=== PATIENT | male | born 1945 | race Caucasian/White ===

== ENCOUNTER 2017-03-17 16:44 | Observation (INO) | payer MEDICARE ==
[~2017-03-17] VITALS: Ht 172.7 cm; Wt 83.0 kg
[2017-03-17 16:47] VITALS: BP 159/81; PULSE 53; RESP 17; O2SAT 95
--- NOTE | 2017-03-17 16:56 | ED.REPORT ---
HPI-Stroke / CVA Mar 17, 2017 ED Provider: Chris Terrazas Pt is an otherwise healthy 71 year old male who presents to the ED complaining of left sided weakness onset this morning. He c/o associated spinning sensation at 10:00 yesterday and left-sided facial droop. Pt reports worsening symptoms since onset. He denies fever, cough, headache, vomiting, nausea, chest pain, and any other symptoms. Pt was referred to the ED by his PCP for a suspected stroke. He denies a history of DM, HTN, CVA, cancer and any other medical problems. Nursing Notes Stated Complaint: POSS STROKE Chief Complaint: Neuro Symptoms/ Deficits Nursing Notes Reviewed: Yes Allergies: Coded Allergies: PEÑA Inhibitors (Verified Allergy, Severe, 03/17/17) lisinopril (Verified Allergy, Mild, 03/17/17) Scheduled Aspirin (Aspirin) 81 Mg Tablet 81 MG PO HS (Reported) Hydrochlorothiazide (Hydrochlorothiazide) 25 Mg Tablet 25 MG PO QAM (Reported) Terazosin (Terazosin) 10 Mg Capsule 10 MG PO HS (Reported) General Time Seen by Provider: 17:00 Chief Complaint Other (Possible CVA) Left-sided Hx Obtained From: Patient Arrived By: Walk-in Time last known well 03/17/17 at 10:00 Sudden in Onset?: Yes Symptom Duration: Since onset Progression Since Onset: Gradually worsening Severity: Current: No pain currently Severity: Maximum: No pain Recent Healthcare: Recent doctor visit Similar Sx Previous: No Risk Factors NIH Stroke Scale Level of Consciousness: Alert and responsive (0) Ask Month & Age: Both questions right (0) Open/Close Eyes/Hand Triage Rn: Performs both tasks (0) Horizontal EO Movements: None (0) Visual Rodriguez: No visual loss (0) Facial Palsy: Normal symmetry (0) Right Arm Motor Drift (10s): No drift 10 sec (0) Left Arm Motor Drift (10s): No drift 10 sec (0) Right Leg Motor Drift (5s): No drift 5 sec (0) Left Leg Motor Drift (5s): No drift 5 sec (0) Limb Ataxia FNF/Heel-Sultana: Ataxia in 2 limbs (2) Sensation (Arms/Legs/Face): Pinprick less sharp (1) Language Aphasia: No aphasia, normal (0) Dysarthria: No dysarthria, normal (0) Extinction/Inattention: No exctinct/inattent (0) NIHSS Score: 3 Time NIHSS Performed: 17:02 Date NIHSS Performed: Mar 17, 2017 Past Medical History Past Medical History Denies - healthy Denies: Diabetes mellitus, Hypertension, Stroke Past Surgical History Denies Smoking History Current Every Day Smoker Social History Other Social History: Good social support, Ambulatory Status Independent Review of Systems Respiratory: Denies: Non-productive cough Cardiovascular: Denies: Chest pain GI: Denies: Nausea, Vomiting Neurologic: Reports: Spinning sensation, Weakness, Denies: Headache, Unable to speak Complete sys rev & neg: except as marked. Physical Exam Initial Vital Signs Vital Signs (First) Date Time Temp Pulse Resp B/P Pulse Ox O2 Delivery O2 Flow Rate FiO2 03/17/17 16:47 36.6 53 17 159/81 95 Room Air Initial VS: Reviewed Abdomen / GI: Soft, Non-tender Extremities: Vascular intact, Neuro intact Skin: Warm, Dry, No cyanosis Psychiatric: Mood/affect normal, Behavior normal General/Constitutional: Awake, Alert, Cooperative, Not toxic appearing Head / Eyes: Atraumatic, Normocephalic Neck: Atraumatic, Full range of motion Respiratory / Chest: Atraumatic, Breath sounds NL, Breath sounds = bilat Cardiovascular: Heart rate NL, Regular rhythm, Heart sounds NL Neurologic: Oriented X3, Speech NL Ataxia in left arm and leg. Decreased sensation on left side of face. Ataxia of left leg. Interpretation & Diagnostics Metabolic from clinic is reassuring. Na - 129 mmol/L K - 3.6 mmol/L Cl - 89 mmol/L TCO2 - 27 mmol/L GLU - 132 mg/dL BUN - 10 mg/dL Crea - 0.7 mg/dL Hct - 50 %PCV Hb - 17.0 g/dL AnGap 0 18 mmol/L Lab Results Interpretation Test 03/17/17 17:15 Hold Purple Top Tube Received (Received) Hold Blue Top Tube Received (Received) Hold Babcock Top Tube Received (Received) Hold Pepper Top Tube Received (Received) ECG Interpretation ECG Interpretation: Sinus rhythm with a rate of 85. Time: 17:25 Interpreted by: ED physician ECG Interpretation: Sinus rhythm with a rate of 87. Multiform ventricular premature complexes. Prolonged ID interval. Probable left atrial enlargement. Time: 17:27 Interpreted by: ED physician Re-Eval/Medical Decision Source of Hx: Old records Re-Evaluation/Progress : Time of Eval: 17:13 )( Re-Eval Neurologic Exam: Alert Re-Evaluation/Progress Note: Rechecked pt. Informed pt of plan for admission. Pt understands and agrees with plan for admission. All questions were answered. Consultation : Referral / Consult Name: Ayleen Stauffer DO Consulted With: Hospitalist Call Returned at: 17:14 Functional Tester Typewriters: Will see patient, Agrees with eval, Agrees with plan, Accepts admit Counseled Regarding: Diagnosis, Lab results, Need for admission Patient Discharge & Departure Impression: Primary Impression: CVA (cerebral vascular accident) CVA mechanism: unspecified Qualified Code: I63.9 - Cerebral infarction, unspecified Disposition: ADMITTED TO HOSPITAL Discharge Condition All VS Reviewed: Yes Condition: Stable Referrals: Janett Toney (PCP) Noah Attestation Portions of this note were transcribed by Park Guevara. I, Dr. Terrazas personally performed the history, physical exam and medical decision-making; I reviewed and confirmed the accuracy of the information in the transcribed note. Signed by: Noah Duncan, 03/17/17 and 17:40. copies to: Janett Toney Kirk H MD Mar 17, 2017 16:56 Park Calhoun Mar 17, 2017 17:07
[2017-03-17] MEDS ORDERED: Polyethylene Glycol (PEG) 17 Gm Powder PO PRN (17:20)
[2017-03-17] MEDS ORDERED: Labetalol 5 mg/mL 4 mL Inj IVPUSH PRN (17:20)
[2017-03-17] MEDS ORDERED: Ondansetron 2 mg/mL 2 mL Inj IVPUSH PRN (17:20)
[2017-03-17] MEDS ORDERED: Alum-Mag Hydrox-Simeth 30 mL Suspension PO PRN (17:20)
[2017-03-17] MEDS ORDERED: HYDR25TA4 PO (17:23)
[2017-03-17] MEDS ORDERED: TERA10CA5 PO (17:23)
[2017-03-17] MEDS ORDERED: ASPI-973 PO (17:23)
[2017-03-17 17:51] VITALS: BP 155/83; PULSE 84; RESP 20; O2SAT 96
[2017-03-17 18:30] VITALS: BP 175/97; PULSE 83; RESP 16; O2SAT 96
--- NOTE | 2017-03-17 18:31 | NUR ---
Admit Pt [place] [facility] [place]. 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 Steady gate when moving from bed to standing scale. Tele placed and in SR 80's with PVC's. No c/o pain. BP elevated at 175/97. Admit completed in ER. Pt will keep just his clothes but all belonging to be taken home with . Oriented to room and call light.
[2017-03-17 18:34] VITALS: PULSE 89
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
[2017-03-17 19:45] LABS: Mean Corpuscular Hemoglobin 30.8 pg (27.0-35.0)
[2017-03-17 19:54] LABS: TROPONIN T < 0.010 ug/L (0.0-0.011)
--- NOTE | 2017-03-17 20:43 | NUR ---
CHAYITO explained and signed. Copy of STRATTON given to pt.
[2017-03-17 21:03] VITALS: BP 191/104; PULSE 80; RESP 16; O2SAT 96
[2017-03-17 23:33] VITALS: BP 153/91; PULSE 74
[2017-03-17] MEDS: Heparin 5,000 Unit/mL Inj SUBQ SCH (23:34)
[2017-03-18] VITALS (8 sets, daily range): BP systolic 135–162; BP diastolic 83–97; PULSE 63–89; RESP 16–18; O2SAT 94–98
[2017-03-18 03:58] LABS: APPEARANCE,URINE CLEAR (CLEAR,HAZY); COLOR,URINE STRAW (YELLOW)
[2017-03-18 03:59] LABS: OCCULT BLOOD,URINE NEGATIVE (NEGATIVE); PH,URINE 6.5 (5.0-8.0); UROBILINOGEN,URINE NORMAL (NORMAL)
[2017-03-18 04:05] LABS: OSMOLALITY, URINE 244 mOs/kH2O (250-1200)
--- NOTE | 2017-03-18 05:58 | NUR ---
neuro/retention Pt still has left facial droop and reports that his left leg is still slightly weak and not back to baseline. gait steady, able to use the bathroom with SBA. A&Ox4; denies pain or discomfort. Pt was unable to void at HS. Bladder scan showed 550mL, tried again to void in the toilet, but unsuccessful. "Same as at work before, I couldn't pee (during urine test) because of anticipation". Agreed to have an In & Out cath done; pt tolerated procedure well w/o difficulty using a codet cath. drained 490mL of urine. Pt has been then spontaneously voiding in the bathroom. PVR was 336mL after voiding 250mL. No further In & Out cath done this shift.
[2017-03-18] MEDS: Heparin 5,000 Unit/mL Inj SUBQ SCH ×3 (08:47→23:50)
--- NOTE | 2017-03-18 09:48 | NUR ---
Evaluation completed. Please go to "Notes" then click on "Assessments and Notes" (bottom left corner of screen). Then select appropriate discipline tab on top of screen.
--- NOTE | 2017-03-18 09:54 | NUR ---
Evaluation completed. Please go to "Notes" then click on "Assessments and Notes" (bottom left corner of screen). Then select appropriate discipline tab on top of screen.
--- NOTE | 2017-03-18 11:29 | PCM.PNMED ---
Subjective Date of Service Mar 18, 2017 Subjective Patient is seen and examined. He says that he is walking around fine. He has not had an echocardiogram yet. He has undergone swallow eval and did fine. He did notice that he had excellent exercise potential and they noted some left ankle weakness. Patient stated that he smoked in the past but has not smoked in 25 years ( it could be because of the hearing problem that we thought he was a smoker yesterday). He has no other complaints. Had almost 2L UOP overnight, had to be straight cath'ed for 600, apparently very nervous over night. Exam Vital Signs Vital Sign - Last Date Time Temp Pulse Resp B/P Pulse Ox O2 Delivery O2 Flow Rate FiO2 03/18/17 10:30 36.5 73 18 162/92 98 Room Air Intake and Output 03/17/17 03/17/17 03/18/17 Cumulative From/Thru 15:00 23:00 07:00 03/17/17 16:47 - 03/18/17 06:19 Intake Total 250 ml 250 ml Output Total 1340 ml 1340 ml Balance -1090 ml -1090 ml Intake Oral 250 ml 250 ml Output Urine Total 1340 ml 1340 ml Exam General: NAD, walking in his room Eyes: [place] conjunctivae. No ptosis, PERRL Mouth: Has some kind of dentures left prosthesis that moves every time he talks Neck: No masses, trachea midline, no thyromegaly Lungs: CTA with normal respiratory effort, no crackles or wheezes CV: RRR, no murmurs/rubs/gallops, normal PMI GI: Soft, non-tender with no hepatosplenomegaly MSK: Normal gait and station, no digital cyanosis Skin: Warm and dry. No rash, lesions or ulcers Psych: A&O X3, appears anxious Neuro: Cranial nerves II to grossly normal with the exception of left-sided facial droop. Negative Romberg's negative for arm drift and balance issues IVs and Medications IV Fluids None Medications Reviewed: Medications were reviewed in detail Lab and Diagnostics Result Diagram: 03/17/17 1715 03/18/17 0615 12-lead ECG Present in the ER showed normal sinus rhythm rate 85, left atrial enlargement, increased AL interval Assessment & Plan Acute cerebral infarct and CVA, POA: In the subcutaneous right basal ganglia and external capsule -- Telemetry monitoring, neurological checks every 4 hours, elevate head of the bed, speech, PT OT, daily aspirin and Lipitor or atorvastatin -- We will stop Permissive hypertension with labetalol IV when necessary as he is 48 hrs post CVA, past the acute period -- A1c and lipids are ordered for tomorrow a.m.: A1c 5.4 and a nondiabetic, he does have hyperlipidemia -- CBC, CMP, INR/PTT are ordered and reviewed -- Echocardiogram is ordered for tomorrow to r/o a R to L shunt: Has not yet been done -- No over night telemetry calls Anxiety active -- One time ativan 0.5 mg PO is given Urine Retention active improving -- Due to BPH, over hydration and anxiety -- cont to monitor Acute hyponatremia, POA -- Ordered urine osmolality, serum osmolality, urine sodium, TSH, cortisol levels to work him up . 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 Patient confirms to me that after he went home from MRI he drank a lot of water because they told him to flush it out of the system -- We will follow with labs. He is currently improving Hypertension chronic active -- He is now 2 days away from his stroke/CVA. We will restart his hydrochlorothiazide for hypertension control Hyperlipidemia: chronic active -- Atorvastatin 10 mg QD Chronic back BPH: chronic active --Continue home medication terazosin Resuscitation Status: CPR: Attempt Resuscitation ( Honey availability [id number]) Time spent 25 Ayleen Stauffer DO Mar 18, 2017 11:29
[2017-03-18] MEDS ORDERED: LORazepam 0.5 mg Tablet PO ONE (11:40)
--- NOTE | 2017-03-18 12:52 | NUR ---
Social Work-initial assessment/ readiness for discharge: Data:See initial assessment. Pt is a 71 y/o male who was admitted on 03/17/17 for CVA per H&P. Pt's insurance is [employer] and PCP is NATIVIDAD Mortensen. EMR reviewed. Pt's readmission score is 0. SW met with pt at bedside, SW role explained. pt is alert and oriented x3. Pt resides at home with his where he remains independent with ADLS. pt drives and does not use any DME at home, but has a w/c and fww. Pt has no HH or SNF history. Pt has no group home care insurance or VA benefits. SW discussed DPOA/ advanced directive, pt has never completed this, SW provided pt with information. PT/ST have both seen pt and recommended home with outpt services. Pt confirms his will provide transport home.SW provided phone number and plan on white board in room. No anticipated discharge needs. SW will continue to follow if needs arise. Assessment:Pt who is independent at baseline. Plan:Pt to discharge home when medically stable via POV. No anticipated discharge needs. SW will continue to follow if needs arise. CRISTINA Alcala Addendum: 03/18/17 at 1256 by ERNESTINA OCONNELL Amended: Links added.
--- NOTE | 2017-03-18 17:55 | DRSVH ---
[facility] [address] [place] [address] Echocardiogram Report Name: STEPHANIE KIDD EStudy Date: 03/18/2017 Height: 68 in Hospital Exam Location: [facility] Weight: 184 lb Gender: Male BSA: 2.0 m2 : 1945 Age: 71 yrs BP: 159/97 m mHg Reason For Study: CVA Ordering Physician: HOSPITALIST [facility] Performed By: Justyna Su Referring Physician: Parker Carlton Interpretation Summary Normal sinus rhythm with frequent PVC's and occasional PAC's. Normal LV size, wall thickness, wall motion and LV systolic function. EF is 60-65%. Stage I diastolic dysfunction. No valvular abnormalities. Normal chamber sizes. Agitated saline study showed no evidence of shunting. No prior study available for comparison. Procedure: A two-dimensional transthoracic echocardiogram with color flow and Doppler was performed. The study quality was technically adequate. There is no prior echocardiogram noted for this patient. A saline contrast injection was performed to assess for cardiac shunting. The patient was in normal sinus rhythm during the exam. The patient had frequent PVCs during the exam. Left Ventricle: The left ventricle is normal in size. Proximal septal thickening is noted. The ejection fraction is estimated to be 60-65%. There are no focal wall motion abnormalities. Assessment of diastolic parameters indicates a relaxation abnormality of the left ventricle, consistent with normal filling pressures. Right Ventricle: The right ventricle is normal in size and function. Atria: Both atria are normal in size. The interatrial septum is intact with no evidence for an atrial septal defect. There is no Doppler evidence for an interatrial shunt. Injection of contrast documented no interatrial shunt. Mitral Valve: The mitral valve is normal in structure and function. There is trace mitral regurgitation. Aortic Valve: The aortic valve is grossly normal. The aortic valve is slightly calcified. There is no aortic valve stenosis. No aortic regurgitation is present. Tricuspid Valve: The tricuspid valve is normal in structure and function. No tricuspid regurgitation. Pulmonary artery pressures cannot be estimated because of the lack of a measurable TR jet velocity. Pulmonic Valve: The pulmonic valve is not well visualized. Great Vessels: The aortic root is normal size. The ascending aorta is normal in size. The aortic arch is normal in size. The IVC is of normal diameter and collapses greater than 50% with a sniff. This suggests a low right atrial pressure of 3 mm Hg. Pericardium/ Pleura There is no pericardial effusion. MMode/2D Measurements & Calculations LVIDd: 5.0 cm LA dimension: 3.8 cm RA long axis LVOT diam: 2.1 cm LVIDs: 2.9 cm AoV Opening FS: 42.1 % LA A2 area: 18.7 cm RA area EPSS: 0.26 cm LA A4 area: 20.6 cm Ao root diam IVSd: 1.3 cm LA length (vol) : 15.0 cm LVPWd: 0.91 cm RA vol Aortic Jxn: 2.5 cm LA vol: 60.3 ml : 39.5 ml asc Aorta Diam LA vol index RA : 20.0 mm2 Ao Arch Diam (Prox Trans): 2.8 cm IVC diam: 1.9 cm LV branch. diameter/BSA LV sys. diameter/BSA RVD1 (basal) TAPSE: 2.6 cm (cm/m^2): 2.5 (cm/m^2): 1.5 Doppler Measurements & Calculations Ao V2 max MV E max aftab MV E/A: 0.63 PA V2 max : 150.0 cm/sec : 49.3 cm/sec Med Peak E' Aftab : 96.9 cm/sec Ao max PG MV A max aftab PA mean PG : 9.0 mmHg : 78.2 cm/sec E/E' med: 10.1 Ao mean PG MV P1/2t: 108.0 msec Lat Peak E' Aftab PA Accel Time : 0.08 sec LVOT Max Aftab E/E' lat: 5.2 : 110.5 cm/sec E/e' average: 7.6 ALEXANDER(I,D): 2.6 cm sev ratio MV dec time MV P1/2t max aftab Ao V2 mean LV V1 max PG : 0.36 sec : 101.7 cm/sec MVA(P1/2t): 2.0 cm2 Ao V2 VTI: 29.6 cm LV V1 VTI ALEXANDER(V,D): 2.7 cm2 : 21.3 cm PA V2 mean ALEXANDER indexed to BSA : 66.9 cm/sec (cm^2/m^2): 1.3 Reading Physician:05:54 PM
[2017-03-19 05:19] VITALS: BP 156/93; PULSE 61; RESP 18; O2SAT 95
--- NOTE | 2017-03-19 06:36 | NUR ---
uneventful night Pt denies pain or discomfort. reports his left leg weakness has improved. independent in the room; gait steady.
[2017-03-19] MEDS: Heparin 5,000 Unit/mL Inj SUBQ SCH ×2 (07:59→16:30)
[2017-03-19 08:57] VITALS: PULSE 87
[2017-03-19 09:35] VITALS: BP 164/96; PULSE 82; RESP 18; O2SAT 96
[2017-03-19] MEDS ORDERED: 0.9% Sodium Chloride 500 ML IV ONE (11:30)
--- NOTE | 2017-03-19 11:47 | PCM.DIMED ---
Discharge Instructions Date of Service Mar 19, 2017 Dates of Hospitalization Mar 17, 2017 at 17:42 Discharge Diagnosis Discharge Diagnosis Acute CVA, HTN, BPH Medication Instructions Additional med instructions Please stop hydrochlorothiazide as advised by her PCP, start amlodipine 10 mg Daily. Take aspirin 325 mg QD Take atorvastatin 10 mg QD Diet Discharge Diet: Heart Healthy Activity Discharge Activity: No restrictions Call your provider Call your provider for: Fever or Chills, Shortness of breath, Bleeding, Chest pain, Vomitting, Excessive diarrhea, Weakness (unilateral), Other Patient Instructions Follow-up plan F/U with PCP in one week. F/U BMP in 3 days to be sent to PCP Ayleen Stauffer DO Mar 19, 2017 11:47
[2017-03-19] MEDS ORDERED: ASPI81TA3 PO (11:48)
[2017-03-19] MEDS ORDERED: AMLO10TA3 PO (11:48)
[2017-03-19] MEDS ORDERED: ATOR10TA66 PO (11:48)
--- NOTE | 2017-03-19 11:56 | PCM.PNMED ---
Subjective Date of Service Mar 19, 2017 Subjective Patient is seen and examined. He is wanting to go home. His sodium levels have been low since admission upon review of his PCPs note it appears that she is planning to do DC his thiazide and she gave him a prescription for amlodipine 5 mg he has not had a chance to pick it up otherwise no complaints Exam Vital Signs Vital Sign - Last Date Time Temp Pulse Resp B/P Pulse Ox O2 Delivery O2 Flow Rate FiO2 03/19/17 09:35 36.8 82 18 164/96 96 Room Air Intake and Output 03/18/17 03/18/17 03/19/17 Cumulative From/Thru 15:00 23:00 07:00 03/17/17 16:47 - 03/19/17 05:34 Intake Total 1336 ml 150 ml 1736 ml Output Total 1275 ml 1050 ml 3665 ml Balance 61 ml -900 ml -1929 ml Intake Oral 1336 ml 150 ml 1736 ml Output Urine Total 1275 ml 1050 ml 3665 ml # Bowel Movements 0 0 Exam Gen.: No acute distress Heart: Regular rate and rhythm no S3-S4 sounds Lungs: Clear to auscultation no crackles or wheezes Neurologic exam: Still has a facial droop to the left, otherwise cranial nerves are grossly normal. MSK: Patient examined and ambulating in the hallways Psychiatric: Seems less anxious today Extremities: Negative for edema IVs and Medications Medications Reviewed: Medications were reviewed in detail Lab and Diagnostics Result Diagram: 03/17/17 1715 03/19/17 0605 12-lead ECG Present in the ER showed normal sinus rhythm rate 85, left atrial enlargement, increased GA interval Cardiac Echo Impressions nterpretation Summary Normal sinus rhythm with frequent PVC's and occasional PAC's. Normal LV size, wall thickness, wall motion and LV systolic function. EF is 60-65%. Stage I diastolic dysfunction. No valvular abnormalities. Normal chamber sizes. Agitated saline study showed no evidence of shunting. No prior study available for comparison. Reading Physician:05:54 PM Assessment & Plan Hyponatremia present on admission, : Appears to be due to polydypsia and HCTZ -- -- Ordered urine osmolality, serum osmolality, urine sodium, TSH, cortisol levels to work him up . 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 Patient confirms to me that after he went home from MRI he drank a lot of water because they told him to flush it out of the system -- We will follow with labs. 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 -- We will recommend find 10 mg daily based on his monitoring here -- We will give 500 mL bolus followed by a sodium check, is an 8 50 mL fluid restriction currently -- Plan is to send him home with a close follow-up with a BMP follow-up if he does improve. Appreciate nephrology's recommendation regarding this Acute cerebral infarct and CVA, POA: In the subcutaneous right basal ganglia and external capsule -- Telemetry monitoring, neurological checks every 4 hours, elevate head of the bed, speech, PT OT, daily aspirin and Lipitor or atorvastatin -- Initially, Permissive hypertension with labetalol IV when necessary. Stopped on 03/18, restarted home meds as he is 48 hrs post CVA, past the acute period -- A1c and lipids are ordered for tomorrow a.m.: A1c 5.4 and a nondiabetic, he does have hyperlipidemia, will treat with a statin -- CBC, CMP, INR/PTT are ordered and reviewed -- Echocardiogram ruled out a R to L shunt: No LA dilation to indicate paroxysmal afib -- No over night telemetry calls or acute events Anxiety active -- One time ativan 0.5 mg PO is given Urine Retention active improving -- Due to BPH, over hydration and anxiety -- cont to monitor Hypertension chronic active -- He is now 2 days away from his stroke/CVA. We will restart his hydrochlorothiazide for hypertension control -Recommend amlodipine 10 mg daily a discharge - . Hydrochlorothiazide Hyperlipidemia: chronic active -- Atorvastatin 10 mg QD Chronic back BPH: chronic active --Continue home medication terazosin Resuscitation Status: CPR: Attempt Resuscitation ( Honey availability [id number]) Time spent >35 min Ayleen Stauffer DO Mar 19, 2017 11:56
--- NOTE | 2017-03-19 12:04 | NUR ---
Social Work-discharge: Data:EMR Reviewed. Pt is on day 2 of hospitalization for CVA per H&P. Pt is medically stable for discharge. PT/ST have cleared pt for home no needs. Pt has been up independent in his room. No discharge needs identified. All updated and agreeable to plan. Assessment:Pt who is independent at baseline. Plan:Pt to discharge home today via POV. No discharge needs identified. All updated and agreeable to plan. CRISTINA Alcala
--- NOTE | 2017-03-19 13:11 | NUR ---
Evaluation completed. Please go to "Notes" then click on "Assessments and Notes" (bottom left corner of screen). Then select appropriate discipline tab on top of screen.
[2017-03-19 14:35] VITALS: BP 162/98; PULSE 75; RESP 18; O2SAT 97
--- NOTE | 2017-03-19 18:07 | NUR ---
Discharge Patient discharge to home with all belongings at 1800. Explained to patient new medications (amlodipine, aspirin, and atorvastatin), when next doses are due, and discharge instructions. Patient verbalized understanding. Dc'd IV intact. Dc'd telemetry. Vitals stable. Patient left floor on his own feet accompanied by and this RN with no sign of distress.
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
== END 2017-03-19 18:03 | disposition home or self-care (01) ==
LOC: SED 16:44 → MPC 17:42 → INTOOBSV 17:42
PROVIDERS: ADMIT Family Medicine; ATTEND Family Medicine
DX: I63.9 Cerebral infarction, unspecified (principal); R29.703 NIHSS score 3; E87.1 Hypo-osmolality and hyponatremia; I10 Essential (primary) hypertension; E78.5 Hyperlipidemia, unspecified; N40.0 Benign prostatic hyperplasia without lower urinary tract symptoms; F41.9 Anxiety disorder, unspecified; R53.1 Weakness; R29.810 Facial weakness; K21.9 Gastro-esophageal reflux disease without esophagitis; F17.210 Nicotine dependence, cigarettes, uncomplicated; Z79.82 Long term (current) use of aspirin; Z88.8 Allergy status to other drugs, medicaments and biological substances
CPT/HCPCS: 36415; 80048; 80053; 80061; 81000; 82533; 83036; 83930; 83935; 84295; 84300; 84439; 84443; 84484; 85027; 85610; 85730; 92610; 93005; 96125; 97161; 99285; C8929; G0378; G8996; G8997; J1644; J7040